=== PATIENT | male | born 1975 | race Caucasian/White ===

== ENCOUNTER → 2016-06-09 | Outpatient (CLI) | payer BC ==
[~2016-06-09] MED LIST: AXIRON90 ML TOP; FAMOTIDINE20 M1 PO; LOSARTAN POTASS50 MG PO; MAGNESIUM OXID250 M1 PO; MELATONIN3 M4 PO; VITAMIN D2000 UNIT PO
--- NOTE | ~2016-06-09 | CT2 ---
[facility] A Service of [facility] RADIOLOGY TEXT RESULTS PATIENT: DIXIE FERNANDEZ LOCATION: [facility] : 73 UNIT #: [id number] AGE: [address]: Tylor Dong MD SEX: M ORDER DR: [id number] [facility]. [place], [place] [address] [id number] O MR#: [id number] Acc #: [id number] NAME: DIXIE FERNANDEZ : 1975 SEX: M STUDY DATE/TIME: 06/09/2016 12:19 UNIT: [facility] ROOM: STUDY DESCRIPTION: CT Abd and Pelv W Cont Attending Physician: Tylor Dong M.D. Referring Physician: Tylor Dong M.D. Ordering Physician: Tylor Dong M.D. Primary Care Physician: Rosalee Pérez MEDICAL IMAGING REPORT This report is preliminary unless electronic signature is present EXAM CT abdomen and pelvis with contrast 06/09/2016 INDICATIONS Testicular cancer, routine follow up, observation for metastatic disease. TECHNIQUE CT of the abdomen and pelvis was performed following the administration of oral and IV contrast. Coronal and sagittal reformatted images were obtained. This CT exam was performed with one or more of the following radiation dose reduction techniques: automatic exposure control, adjustment of mA and/or kV according to patient size, and iterative reconstruction. COMPARISON STUDIES Comparison is made with 03/03/2016. FINDINGS CT ABDOMEN: Lung bases are clear. The liver, gallbladder are both unremarkable. Tiny presumed cyst in the spleen. There is a small cyst in the right kidney. The left kidney is unremarkable. The adrenal glands are unremarkable. The pancreas is unremarkable. There is no retroperitoneal lymphadenopathy. There is no mesenteric lymphadenopathy. CT PELVIS: There appears to have been a right orchiectomy. Colon is unremarkable. The appendix is normal. No free fluid. There is no lymphadenopathy in the pelvis. Bone windows demonstrate bilateral L5 pars defects. IMPRESSION No evidence of metastatic disease. [facility] A Service of [facility] RADIOLOGY TEXT RESULTS PATIENT: DIXIE FERNANDEZ LOCATION: [facility] : 73 UNIT #: [id number] AGE: [address]: Tylor Dong MD SEX: M ORDER DR: Dictated by... Marcelino Rivera M.D. THIS IS AN ELECTRONICALLY VERIFIED REPORT Marcelino Rivera M.D. at 06/10/2016 2:01 PM Scott TD: 06/09/2016 16:56 JOB #: [id number] MEDICAL IMAGING REPORT Page 1 of 1 COPY
[2016-06-09 15:26] LABS: POC - CREATININE 0.84 mg/dL (0.64-1.27); POC - GFR >60.0 mL/min (>60)
== END | disposition home or self-care (01) ==
LOC: CCAT 10:42
PROVIDERS: Internal Medicine Hematology & Oncology
DX: C62.92 Malignant neoplasm of left testis, unspecified whether descended or undescended (principal)
CPT/HCPCS: 74177; 82565; Q9967